=== PATIENT | male | born 1980 | race Caucasian/White ===

== ENCOUNTER 2022-08-26 11:28 | Emergency (ER) | payer OTHER, SELFPAY ==
--- NOTE | ~2022-08-26 | XR_ITS ---
XR finger 4th RT min 2V 08/26/2022 12:13 Indication: Proximal finger swelling after splinter Procedure: 4 views right fourth finger Comparison: No prior studies for comparison. Findings: There is soft tissue swelling at the fourth proximal interphalangeal joint. No foreign body . No fracture or traumatic malalignment. No erosive changes. Impression: 1: No acute bone or joint abnormality. Reviewed, dictated and finalized at location A. TECHNICIAN Impression: 1: No acute bone or joint abnormality.
[2022-08-26 11:42] VITALS: BP 143/99; PULSE 95; RESP 18; TEMP 36.8; O2SAT 98
--- NOTE | 2022-08-26 11:49 | ED.GENADULT ---
HPI - General Adult General Chief complaint: Extremity Injury, Upper Stated complaint: finger injury Time Seen by Provider: 08/26/22 11:49 Source: patient Mode of arrival: ambulatory Limitations: no limitations History of Present Illness HPI narrative: 42-year-old male patient presents to the [facility] with complaints of pain over to the right ring finger. Patient states he pulled out a splinter from the right finger about a week ago. Patient states started getting some discomfort to his finger yesterday and woke up today with the finger swollen, red and having trouble bending it. Patient denies cleaning the wound area after pulling the splinter out about a week ago. Patient unsure when his last tetanus shot was. Related Data Home Medications Medication Instructions Recorded Confirmed cetirizine 10 mg tablet (Zyrtec) 10 mg PO DAILY 04/13/21 08/26/22 montelukast 10 mg tablet 10 mg PO DAILY 04/13/21 08/26/22 (Singulair) testosterone 10 mg/0.5 2 pump transdermal QAM 04/13/21 08/26/22 gram/actuation transdermal gel pump (Fortesta) venlafaxine 150 mg 150 mg PO DAILY 04/13/21 08/26/22 capsule,extended release 24 hr (Effexor XR) meloxicam 15 mg tablet 15 mg PO DAILY 08/26/22 08/26/22 Allergies Allergy/AdvReac Type Severity Reaction Status Date / Time penicillin G AdvReac Severe Hives Verified 08/26/22 11:51 egg AdvReac Mild Rash Verified 08/26/22 11:51 Review of Systems Review of Systems: CONSTITUTIONAL: Denies fever, chills, or sweats. EYES: Denies visual changes, redness, or discharge. ENT: Denies rhinorrhea, congestion, sore throat, or otalgia. CARDIOVASCULAR: Denies chest pain, palpitations, or edema. RESPIRATORY: Denies cough or dyspnea. GASTROINTESTINAL: Denies abdominal pain, nausea, vomiting, or diarrhea. GENITOURINARY: Denies dysuria or hematuria. SKIN: Denies rash or itching. Positive pain to right ring finger x2 days MUSCULOSKELETAL: Denies back pain, joint pain, or myalgia. NEUROLOGIC: Denies headache, numbness, or weakness. PSYCHIATRIC: Denies anxiety or depression. [facility] Family History Family History Father Lung cancer Depression Hypertension Thyroid disorder Mother Lupus Grandparent CHF (congestive heart failure) Hypotension Social History Social History Smoking status: Never smoker Second hand tobacco smoke exposure: No Alcohol intake: current Drinks per week: 4 Alcohol use details: Beer Substance use: never Additional occupation/education comments: [employer] Gender identity (if verbalized by the patient): Male Comments At the time of my signature I agree with nursing past medical history, surgical, social, and family history. There is no relevant family history pertinent to the presenting complaint. Exam Narrative: GENERAL: Well-appearing, well-nourished, and in no acute distress. HEAD: Normocephalic, atraumatic. EYES: PERRLA and EOMI. ENT: Nares clear, no rhinorrhea or epistaxis. Mucous membranes moist. NECK: Supple. No lymphadenopathy CHEST: Clear to auscultation. No respiratory distress. HEART: Regular rate and rhythm. No murmur heard. Normal peripheral pulses. ABDOMEN: Soft, nontender, nondistended, normal active bowel sounds. EXTREMITIES: The R ring finger is without obvious asymmetry or deformity when compared to the L ring finger. there is swelling anerythema noted over the PIP joint of the right ring finger. No atrophy, or obvious deformity. No surface trauma, open wounds, nail avulsion, tissue avulsion, partial or complete amputation, subungual hematoma, bony deformity. Normal cascade of fingers. Normal flexion and extension of fingers, but does complain of pain. FDS and FDP intact aganist restistance. No focal fullness, thobbing pain, swelling of fingertip. tenderness to palpation over the PIP joint of the right ring finger
[2022-08-26] MEDS: TETANUS,DIPHTHERIA,AC PERTUSSIS ADULT (0.5 ML) BOOSTRIX IM (12:14)
== END 2022-08-26 13:02 | disposition home or self-care (01) ==
PROVIDERS: Emergency Provider Nurse Practitioner Family
DX: L03.011 Cellulitis of right finger (principal); Z23 Encounter for immunization
CPT/HCPCS: 73140; 90471; 90715; 99213; G0463

== ENCOUNTER 2023-03-05 15:47 | Emergency (ER) | payer OTHER, SELFPAY ==
--- NOTE | 2023-03-05 15:56 | ED.BACK ---
HPI - Back Pain/Injury General Chief Complaint: Back Pain/Injury Stated Complaint: lower back pain Time Seen by Provider: 03/05/23 15:56 Source: patient Mode of arrival: ambulatory Limitations: no limitations History of Present Illness HPI Narrative: Patient is a 42-year-old male who presents with right low back pain radiating down to right knee for 2 weeks. Patient denies any obvious injury or new exercise regimen. Patient states stretching does help along with topical icy Hot. Patient states last night the pain worsened. Denies any numbness, tingling or weakness to right leg. Denies any loss of bowel or bladder. Has been taking Tylenol along with his meloxicam. Related Data Home Medications Medication Instructions Recorded Confirmed cetirizine 10 mg tablet (Zyrtec) 10 mg PO DAILY 04/13/21 03/05/23 montelukast 10 mg tablet 10 mg PO DAILY 04/13/21 03/05/23 (Singulair) testosterone 10 mg/0.5 2 pump transdermal QAM 04/13/21 03/05/23 gram/actuation transdermal gel pump (Fortesta) venlafaxine 150 mg 150 mg PO DAILY 04/13/21 03/05/23 capsule,extended release 24 hr (Effexor XR) meloxicam 15 mg tablet 10 mg PO DAILY 08/26/22 03/05/23 Allergies Allergy/AdvReac Type Severity Reaction Status Date / Time penicillin G AdvReac Severe Hives Verified 03/05/23 16:06 egg AdvReac Mild Rash Verified 03/05/23 16:06 Review of Systems Review of Systems: All systems reviewed & are unremarkable except as noted in HPI and below Constitutional: Constitutional: Denies body ache(s), Denies chills, Denies fatigue, Denies fever(s), Denies headache(s), Denies malaise and Denies weakness Eyes: Eyes: Denies blurry vision, Denies irritation and Denies loss of vision ENT: Denies otalgia, Denies headache(s), Denies nasal discharge, Denies sinus pain and Denies sore throat Cardiovascular: Cardiovascular: Denies chest pain, Denies irregular heart rhythm and Denies dyspnea Respiratory: Respiratory: Denies dyspnea Gastrointestinal: Gastrointestinal: Denies abdominal pain, Denies melena, Denies hematochezia, Denies diarrhea, Denies nausea and Denies vomiting Musculoskeletal: Musculoskeletal: Reports back pain, Denies myalgias and Denies arthralgias Integumentary/Breasts: Skin/Breast: Denies pruritus and Denies rash Neurologic: Denies headache(s), Denies loss of vision and Denies weakness Psychiatric: Psychiatric: Reports no additional psychiatric complaints Endocrine: Endocrine: Denies fatigue PMFSH Family History Family History Father Lung cancer Depression Hypertension Thyroid disorder Mother Lupus Grandparent CHF (congestive heart failure) Hypotension Social History Social History Smoking status: Never smoker Second hand tobacco smoke exposure: No Alcohol intake: current Drinks per week: 4 Alcohol use details: Beer Substance use: never Living arrangements: with family Occupation/Education: occupation Additional occupation/education comments: [employer] Gender identity (if verbalized by the patient): Male Comments At time of signature, agree with nursing past medical, surgical, social and family history. There is no relevant family history pertinent to the presenting complaint. Exam Const: General: cooperative, healthy appearing, comfortable, no acute distress and well nourished Nutritional Appearance: well nourished Orientation/consciousness: patient oriented x3 Limitations: no limitations HENMT: Head: normal to inspection, normocephalic and atraumatic Ears: hearing grossly normal bilaterally and external ears normal Face/Nose/Sinus: Normal external nose present, normal facial exam and face symmetric Face and sinus: normal facial exam and face symmetric Mouth: Yes lip normal Eyes: General: appearance normal, both eyes and all related structures Alignment and Position: al
[2023-03-05 16:05] VITALS: BP 148/95; PULSE 92; RESP 18; TEMP 36.4; O2SAT 99
== END 2023-03-05 16:44 | disposition home or self-care (01) ==
PROVIDERS: Emergency Provider Nurse Practitioner Family
DX: M54.31 Sciatica, right side (principal)
CPT/HCPCS: 99213; G0463